=== PATIENT | male | born 1990 | race Caucasian/White ===

== ENCOUNTER 2021-03-03 12:53 | Day surgery (SDC) | payer MEDICARE, OTHER ==
[2021-02-25 14:13] VITALS: BMI 36.9
[~2021-03-03 12:53] MED LIST: LIDOCAINE 1% (10MG/ML) FOR IV START INTRADERMA PRN
[2021-03-03 13:28] VITALS: RESP 16; TEMP 98.3
[2021-03-03] MEDS: LACTATED RINGERS 1,000 ML IV SCH ×2 (13:29→15:05)
[2021-03-03] MEDS ORDERED: PROPOFOL 10 MG/ML 20 ML VIAL IV ONE (15:07)
--- NOTE | 2021-03-03 15:13 | P.GSHP ---
History of Present Illness H&P Date: 03/03/21 Chief Complaint: constipation this is a 30-year-old male who presents today for colonoscopy. He's had issues with constipation. She also describes crampy abdominal pain. Past Medical History Additional Past Medical History / Comment(s): STATES [id number] SORES ON HIS FEET THAT TAKE A LONG TIME TO HEAL., STATES CONSTIPATION-SOMETIMES NO BM FOR 7 DAYS., TINNITUS. History of Any Multi-Drug Resistant Organisms: None Reported Past Surgical History: No Surgical Hx Reported Additional Past Surgical History / Comment(s): WISDOM TEETH Additional Past Anesthesia/Blood Transfusion Reaction / Comment(s): NO ANESTHESIA HX Past Psychological History: Anxiety, Depression Smoking Status: Never smoker Past Alcohol Use History: None Reported Past Drug Use History: None Reported - Past Family History Father Additional Family Medical History / Comment(s): GIST Medications and Allergies Home Medications Medication Instructions Recorded Confirmed Type buPROPion HCL [Wellbutrin XL] 300 mg PO DAILY 02/25/21 03/03/21 History Allergies Allergy/AdvReac Type Severity Reaction Status Date / Time No Known Allergies Allergy Verified 03/03/21 13:20 Surgical - Exam Vital Signs Temp Pulse Resp BP Pulse Ox 98.3 F 88 16 153/85 95 03/03/21 13:27 03/03/21 13:27 03/03/21 13:27 03/03/21 13:27 03/03/21 13:27 - General well developed, well nourished, no distress - Eyes PERRL - ENT normal pinna - Neck no masses - Respiratory normal expansion - Cardiovascular Rhythm: regular - Abdomen Abdomen: soft, non tender Assessment and Plan Assessment: constipation Morbid obesity BMI 39 Patient will undergo colonoscopy.
--- NOTE | 2021-03-03 15:29 | P.OP ---
Date of Procedure: 03/03/21 Preoperative Diagnosis: constipation Postoperative Diagnosis: constipation Poor colonic prep Procedure(s) Performed: colonoscopy Anesthesia: MAC Surgeon: Wellington Peña Pathology: none sent Condition: stable Disposition: PACU Description of Procedure: The patient's placed on the endoscopy table in the lateral position. He received IV sedation. Digital rectal exam was performed which revealed stool in the examining finger. The flexible colonoscope was then placed patient anus and passed into the colon. In the sigmoid colon there is extensive amount of stool. The patient a very "poor colonic prep. This point scope withdrawn. The patient will need to be rescheduled for colonoscopy.
[2021-03-03 15:40] VITALS: BP 144/73; PULSE 72
== END 2021-03-03 16:04 | disposition home or self-care (01) ==
LOC: ORWHC2ENDO 12:53
PROVIDERS: ATTEND Surgery
DX: K59.00 Constipation, unspecified (principal); R73.03 Prediabetes; Z98.890 Other specified postprocedural states; F41.9 Anxiety disorder, unspecified; F32.A Depression, unspecified; Z79.899 Other long term (current) drug therapy
CPT/HCPCS: 45378; J2704